=== PATIENT | female | born 1965 | race Caucasian/White ===

== ENCOUNTER 2018-08-29 11:43 | Outpatient (CLI) | payer OTHER ==
--- NOTE | 2018-08-29 13:18 | MMO ---
Bilateral MAMMO Bilat Screen [facility]. CLINICAL HISTORY: Patient is 53 years old and is seen for screening. The patient has no family history of breast cancer. The patient has no personal history of cancer. VIEWS: The views performed were: bilateral craniocaudal with tomosynthesis and bilateral mediolateral oblique with tomosynthesis. FILMS COMPARED: The present examination has been compared to prior imaging studies performed at [facility] on 12/22/2016, and at [facility] on 11/07/2008, 11/09/2011 and 08/08/2014. MAMMOGRAM FINDINGS: There are scattered fibroglandular densities. There are stable benign appearing calcifications seen in both breasts. There are no suspicious masses, suspicious calcifications, or new areas of architectural distortion. IMPRESSION: THERE IS NO MAMMOGRAPHIC EVIDENCE OF MALIGNANCY. A ROUTINE FOLLOW-UP MAMMOGRAM IN 1 YEAR IS RECOMMENDED. THE RESULTS OF THIS EXAM WERE SENT TO THE PATIENT. ACR BI-RADS Category 2 - Benign finding MAMMOGRAPHY NOTE: 1. A negative mammogram report should not delay a biopsy if a dominant of clinically suspicious mass is present. 2. Approximately 10% to 15% of breast cancers are not detected by mammography. 3. Adenosis and dense breasts may obscure an underlying neoplasm.
== END 2018-08-29 11:44 | disposition home or self-care (01) ==
LOC: BICMAMMO 11:43
PROVIDERS: ATTEND General Practice
DX: Z12.31 Encounter for screening mammogram for malignant neoplasm of breast (principal)
CPT/HCPCS: 77063; 77067

== ENCOUNTER → 2018-11-28 | Day surgery (SDC) | payer OTHER ==
[2018-11-27 12:42] VITALS: BMI 30.9
[~2018-11-28] MED LIST: FLU VACC QS2019-20(6MOS UP)/PF 60 MCG/0.5 ML SYRINGE IM ONE; Iopamidol-M 300 61% 15 ML VIAL ONE
[2018-11-28 07:56] VITALS: BP 147/88; TEMP 97
--- NOTE | 2018-11-28 10:12 | RAD ---
CERVICAL SPINE FIVE VIEWS: HISTORY: Neck pain. Paresthesia in hands. COMPARISON: None. FINDINGS: Lateral views were taken with neutral flexion and extension positions. In the neutral position there is straightening of the lordotic curvature. Postop changes are noted at C5-C6 with anterior plate and screws transfixing these levels and interbody fusion. Degenerative changes are noted at C4-C5 with loss of disk space and posterior spondylosis. There is slight anterolisthesis at C3-C4, measured at 2 to 3 mm, in the neutral position. This does c orrect with extension. Degenerative changes are also apparent at C6-C7 with loss of disk space, anterior spurring and high school coordinator ior spondylosis. IMPRESSION: Degenerative and postoperative changes of cervical spine noted as described. POS: OFF
--- NOTE | 2018-11-28 10:27 | RAD ---
CERVICAL MYELOGRAM: INDICATIONS: Cervical radiculopathy. TECHNIQUE: A post myelogram CT was requested and this procedure was performed prior to that study. FINDINGS: Isovue M 300 10 mL was injected under fluoroscopic observation through a 22 gauge spinal needle at th e L3 level. The patient was placed head down and contrast was observed to flow into the cervical spin al canal, under fluoroscopy. The patient was then returned to the neutral position. The patient was t aken to the CT for post myelogram CT of the cervical spine. See that exam for further characterizatio n. PROCEDURE IN DETAIL: The procedure and potential complications were discussed with the patient. The patient was placed pro ne on the fluoroscopy table. The lower back was prepped and draped in a sterile manner. A 22 gauge s nani needle was used to enter the spinal canal under local anesthesia, at the L3 level, using a para midline approach from the left. Clear spinal fluid was recovered. Isovue M 300 10 mL was injected un courtney fluoroscopic observation. Fluoroscopy confirmed injection within the thecal sac. The patient was placed head down to allow contrast to flow into the cervical canal. There were no problems or complications. The patient was taken to CT for post myelogram CT cervical s pine. POS: OFF
--- NOTE | 2018-11-28 10:56 | CT ---
CT CERVICAL SPINE POST MYELOGRAM: INDICATIONS: The patient has had prior cervical spine surgery. There is recurrent neck pain with radiculopathy. TECHNIQUE: Multiple axial tomograms obtained through the cervical spine following a cervical myelogram procedure . Multiplanar reconstruction images obtained. FINDINGS: Postoperative changes are noted at C5-C6. Anterior plate and screw transfix these levels and there is interbody fusion at these levels. There are degenerative changes noted. Loss of disk space at C4-C5 and at C6-C7. Posterior spondylosis at these levels. Slight anterolisthesis at C3-C4 measured at 2 to 3 mm. Findings at each level are described: C2-C3: There is disk osteophyte complex which indents the thecal sac and abuts the anterior cord cent rally. No significant foramina encroachment. C3-C4: Diffuse disk bulge and spondylosis efface the anterior subarachnoid space. No significant cord impingement. No significant foraminal stenosis. C4-C5: Disk bulge and spondylosis efface the anterior subarachnoid space. There is uncinate hypertrop hy however no significant foraminal stenosis. C5-C6: Postop fusion changes at C5-C6. There are posterior bony hypertrophic changes at C5-C6 which f latten the thecal sac and mildly efface the anterior subarachnoid space. No cord impingement. No sign ificant foraminal stenosis. C6-C7: Posterior disk bulge and spondylosis flatten the thecal sac and abuts the cord anteriorly to t he right of midline. This appears to displace the traversing right C8 nerve root and possibly the exi ting right C7 nerve root. IMPRESSION: 1. A disk osteophyte complex at C2-C3 abuts the anterior cord. 2. Disk bulge and spondylosis at C4-C5 abuts the anterior cord, as described above. 3. Degenerative change at C6-C7 with asymmetric disk bulge/protrusion to the right abuts the anterior cord, as described above. POS: OFF
== END ==
LOC: RAD 07:00
PROVIDERS: ATTEND Physician Assistant Surgical
PROC: B02B1ZZ Computerized Tomography (CT Scan) of Spinal Cord using Low Osmolar Contrast (ICD-10-PCS; principal; 2018-11-28)
DX: M47.22 Other spondylosis with radiculopathy, cervical region (principal); F17.210 Nicotine dependence, cigarettes, uncomplicated; I10 Essential (primary) hypertension; E11.9 Type 2 diabetes mellitus without complications; Z88.5 Allergy status to narcotic agent
CPT/HCPCS: 62302; 72050; 72126; Q9967

== ENCOUNTER 2019-03-21 08:16 | Day surgery (SDC) | payer OTHER ==
[2019-03-20 08:48] VITALS: BMI 30.9
[2019-03-21 09:14] LABS: Hemoglobin 13.3 g/dL (12.0-16.0); Mean Corpuscular HGB CONC 33.5 g/dL (32.0-36.0); Mean Corpuscular Hemoglobin 34.8 pg (27.0-31.0); Mean Platelet Volume 7.1 fL (7.4-10.4); Platelet Count 297 thou/uL (130-400); RBC Distribution Width 11.5 % (11.5-14.5); Red Blood Cell (RBC) Count 3.81 mill/uL (4.20-5.40); White Blood Cell (WBC) Count 7.8 thou/uL (4.8-10.8)
[2019-03-21 09:34] LABS: Anion Gap 13 mmol/L (10-20); BUN (Urea Nitrogen) 10 mg/dL (9.8-20.1); Calc. Creatinine Clearance 108 mL/min (70-130); Calcium 9.3 mg/dL (7.8-10.44); Carbon Dioxide 29 mmol/L (22-29); Chloride 99 mmol/L (98-107); Estimated GFR-MDRD 79; Glucose 93 mg/dL (70-105); Potassium 4.3 mmol/L (3.5-5.1); Sodium 137 mmol/L (136-145)
[2019-03-21] MEDS ORDERED: PHENYLEPHRINE-NS 100 MCG/ML 10 ML SYRINGE ONE (09:49)
[2019-03-21] MEDS ORDERED: Ondansetron PF 4 MG/2 ML Vial ONE (09:49)
[2019-03-21] MEDS ORDERED: Glycopyrrolate 0.2 MG/ML 5 ML SYRINGE ONE (09:49)
[2019-03-21] MEDS ORDERED: PROPOFOL 200 MG/20 ML VIAL ONE (09:49)
[2019-03-21] MEDS ORDERED: Lidocaine 1% PF 5 ML VIAL ONE (09:49)
[2019-03-21] MEDS ORDERED: Rocuronium Bromide 10 MG/ML (10ML VIAL) ONE (09:49)
[2019-03-21] MEDS ORDERED: Dexamethasone 20 MG/5 ML VIAL ONE (09:49)
[2019-03-21] MEDS ORDERED: Thrombin 5000 UNITS/5 ML VIAL ONE ×2 (10:09→10:12)
[2019-03-21] MEDS ORDERED: Fentanyl 100 MCG/2 ML VIAL ONE ×2 (10:41→14:14)
[2019-03-21 10:44] LABS: INR-International Normal Ratio 0.9; Prothrombin Time 12.5 SEC (12.0-14.7)
[2019-03-21] MEDS ORDERED: Ondansetron PF 4 MG/2 ML Vial IVP PRN (13:34)
[2019-03-21] MEDS ORDERED: Mag-Al 1200 mg/1200 mg/30 ML UDCUP PO PRN (13:34)
[2019-03-21] MEDS ORDERED: Morphine 2 MG/ML SYRINGE SLOW IVP PRN (13:34)
[2019-03-21] MEDS ORDERED: Bisacodyl 10 MG SUPP PR PRN (13:34)
[2019-03-21] MEDS ORDERED: Milk Of Magnesia 30 ML UDCUP PO PRN (13:34)
[2019-03-21] MEDS ORDERED: Acetaminophen 325 MG TAB PO PRN (13:34)
[2019-03-21] MEDS ORDERED: Fleet Enema 133 ML BOT PR PRN (13:34)
[2019-03-21] MEDS ORDERED: Morphine Sulfate 2 MG/ML SYRINGE SLOW IVP PRN (13:39)
[2019-03-21] MEDS ORDERED: Ondansetron HCl/PF 4 MG/2 ML Vial IVP PRN (13:39)
[2019-03-21] MEDS ORDERED: Promethazine HCl 25 MG/ML VIAL IM PRN (13:39)
[2019-03-21] MEDS ORDERED: Promethazine HCl 25 MG/ML VIAL SLOW IVP PRN (13:39)
[2019-03-21] MEDS ORDERED: PACU-Morphine 4MG/ML VIAL SLOW IVP PRN (13:39)
[2019-03-21] MEDS ORDERED: HYDROmorphone 2 MG/ML VIAL SLOW IVP PRN (13:39)
[2019-03-21] MEDS: tiZANidine HCl 4 MG TAB PO PRN (15:55)
[2019-03-21] MEDS: Sodium Chloride 0.9% 1,000 ML IV SCH (15:56)
[2019-03-21] MEDS: HYDROcodone/Acetaminophen 10/325 mg Tablet PO PRN ×2 (16:01→20:42)
[2019-03-21] MEDS: CEFAZOLIN 2 GM in Premix Bag 1 BAG IVPB SCH (18:26)
[2019-03-21] MEDS: traMADol HCl 50 MG TAB PO PRN (18:30)
[2019-03-21] MEDS: metFORMIN 500 MG TAB PO SCH (20:35)
[2019-03-22] MEDS: tiZANidine HCl 4 MG TAB PO PRN ×2 (00:06→08:07)
[2019-03-22] MEDS: Sodium Chloride 0.9% 1,000 ML IV SCH (00:06)
[2019-03-22] MEDS: CEFAZOLIN 2 GM in Premix Bag 1 BAG IVPB SCH ×2 (02:41→08:16)
[2019-03-22 03:24] VITALS: BP 98/62; TEMP 98.2
[2019-03-22] MEDS: traMADol HCl 50 MG TAB PO PRN (05:51)
--- NOTE | 2019-03-22 07:44 | OP ---
DATE OF PROCEDURE: 03/21/2019 LOCATION: OR 12. 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 PROCEDURES PERFORMED: 1. Reopening of anterior C5-C6 incision and removal of C5-C6 plate-screw construct from outside institution. 2. Exploration of fusion. 3. C6-C7 diskectomy for decompression of spinal cord and C7 nerve roots. 4. Placement of interbody spacer, C6-C7, packed with local bone autograft, obtained from same incision and allograft. 5. Anterior cervical plate and screw fixation, C5, C6, and C7. 6. Use of operative microscope for microdissection. DESCRIPTION OF PROCEDURE: After informed consent was obtained from the patient, the patient was brought to the OR. Proper patient, pause, and identification were carried out. She was placed under excellent general endotracheal anesthesia and positioned supine on the OR table. All appropriate points were padded. We identified the right transverse incision that was used by the prior surgeon for the C5-C6 approach. This region was sterilely cleansed, prepared, and draped. Proper patient, pause, and identification were carried out. The wound was then opened with a combination of sharp, monopolar, and blunt dissection. We encountered as expected scar tissue. We then proceeded gently through the obscured planes and identified landmarks allowing us to enter the C5-C6 prevertebral space. The plate was identified, and the screws and plate were removed. She had developed osseous fusion at C5-C6. However, the diameter of the screws was somewhat robust and her bone quality was soft leading me to be concerned with just fixation to C6 with the plate. As such, diskectomy at C6-C7 was performed for decompression of spinal cord and nerve roots, and an interbody spacer of appropriate dimension packed with graft was placed. I then opted for additional fixation at C5 given the poor bone quality typically seen at her young age. As such, plate and screw fixation at C5, C6, C7 then occurred with final tightening. Copious irrigation occurred throughout as did maximizing hemostasis. The wound was closed in anatomic layers over drain. Job ID: [id number]
[2019-03-22] MEDS: metFORMIN 500 MG TAB PO SCH (08:06)
[2019-03-22] MEDS: HYDROcodone/Acetaminophen 10/325 mg Tablet PO PRN (08:09)
--- NOTE | 2019-03-22 08:09 | PRG ---
DATE OF SERVICE: 03/22/2019 Ms. Dubon is postoperative day 1 from C6-C7 ACDF with plating from C5 through C7 and exploration of fusion. She has improvement in the paresthesias in her hands and is moving with good strength. We will plan for dismissal today and removal of her drain. Job ID: [id number]
[2019-03-22] MEDS ORDERED: Atorvastatin Calcium 20 MG TAB PO SCH (09:00)
[2019-03-22] MEDS ORDERED: Losartan/Hydrochlorothiazide 100 mg/25 mg Tablet PO SCH (09:00)
[2019-03-22] MEDS ORDERED: Calcium Carbonate + Vit D 1 TAB PO SCH (09:00)
--- NOTE | 2019-03-25 18:47 | EKG ---
Test Reason : PREOP Blood Pressure : / mmHG Vent. Rate : 063 BPM Atrial Rate : 063 BPM P-R Int : 196 ms QRS Dur : 092 ms QT Int : 436 ms P-R-T Axes : -13 -08 028 degrees QTc Int : 446 ms Normal sinus rhythm Normal ECG No previous ECGs available Confirmed by DR. Jane YANEZ MD ([id number]) on 03/25/2019 6:47:00 PM Referred By: SPENCER Confirmed By:DR. Jane YANEZ MD
== END 2019-03-22 11:02 | disposition home or self-care (01) ==
LOC: SDC 08:16 → SURG A 15:31 → SDC 03-22 11:02
PROVIDERS: ATTEND Surgery
PROC: 0RT30ZZ Resection of Cervical Vertebral Disc, Open Approach (ICD-10-PCS; principal; 2019-03-21)
PROC: 0RG10A0 Fusion of Cervical Vertebral Joint with Interbody Fusion Device, Anterior Approach, Anterior Column, Open Approach (ICD-10-PCS; principal; 2019-03-21)
DX: M50.123 Cervical disc disorder at C6-C7 level with radiculopathy (principal); M48.02 Spinal stenosis, cervical region; R20.2 Paresthesia of skin; F17.200 Nicotine dependence, unspecified, uncomplicated; Z79.82 Long term (current) use of aspirin; Z79.84 Long term (current) use of oral hypoglycemic drugs; Z79.899 Other long term (current) drug therapy; Z88.5 Allergy status to narcotic agent; Z98.1 Arthrodesis status
CPT/HCPCS: 76000; 80048; 85027; 85610; 85730; 93005; 93010; C1776; J0690; J1100; J2001; J2270; J2405; J2704; J3010; J3490

== ENCOUNTER 2019-05-15 08:42 | Outpatient (CLI) | payer OTHER ==
--- NOTE | 2019-05-15 09:28 | RAD ---
EXAM: 3 views of the cervical spine HISTORY: Numbness in hands and left arm radiculopathy COMPARISON: None FINDINGS: AP, lateral, and open mouth odontoid views of the cervical spine shows normal height and al ignment of the vertebral bodies and intervertebral discs without fracture or subluxation. The patient is status post anterior fusion of C5-C7 with a plate and screws. No perihardware lucency is s een. No prevertebral soft tissue swelling is seen. IMPRESSION: Postsurgical changes of the lower cervical spine without acute osseous abnormality.
== END 2019-05-15 08:43 | disposition home or self-care (01) ==
LOC: TBSIIMAG 08:42
PROVIDERS: ATTEND Surgery
DX: M50.20 Other cervical disc displacement, unspecified cervical region (principal)
CPT/HCPCS: 72040